=== PATIENT | male | born 1960 | race Caucasian/White ===

== ENCOUNTER 2022-03-24 12:19 | Observation (INO) | payer BC ==
[~2022-03-24] VITALS: Ht 185.4 cm; Wt 81.8 kg
[2022-03-24 12:52] LABS: BASO % 0.1 % (0.0-2.0); EOS % 0.1 % (0.0-4.0); GRAN # 8.3 K/mm3 (1.4-6.5); GRAN % 83.7 % (42.2-75.2); HEMATOCRIT 37.2 % (42.0-52.0); HEMOGLOBIN 12.9 g/dl (13.5-18.0); LYMPH % 10.3 % (20.0-51.0); MEAN CELL VOLUME 86 fl (80.0-100.0); MEAN CORPUSCULAR HEMOGLOBIN 30 pg (27-31); MEAN CORPUSCULAR HGB CONC 35 g/dl (33.0-37.0); MEAN PLATELET VOLUME 10.8 fl (7.4-10.4); MONO # 0.6 K/mm3 (0.1-0.6); MONO % 5.5 % (1.7-9.3); PLATELET COUNT 156 K/mm3 (130-400); RED BLOOD COUNT 4.31 M/mm3 (4.20-5.60); REDCELL DISTRIBUTION WIDTH-CV 12.6 % (11.5-14.5)
[2022-03-24 13:10] LABS: ALBUMIN 4.1 gm/dL (3.4-4.8); ANION GAP 18 mmol/L (7-16); BLOOD UREA NITROGEN 30 mg/dL (8-26); CARBON DIOXIDE 18 mmol/L (23-31); CHLORIDE 98 mmol/L (98-107); CREATINE KINASE 207 U/L (30-200); PHOSPHOROUS 3.1 mg/dL (2.3-4.7); POTASSIUM 5.5 mmol/L (3.5-4.5); SODIUM 134 mmol/L (136-145)
[2022-03-24 13:11] LABS: GLUCOSE 462 mg/dL (70-99)
[2022-03-24 13:22] LABS: TROPONIN-I < 0.010 ng/mL (0.00-0.033)
[2022-03-24 14:39] LABS: CALCIUM 8.5 mg/dL (8.4-10.2); CREATININE, serum 2.46 mg/dL (0.72-1.25)
[2022-03-24 15:00] LABS: MUCOUS Present (NOT PRESENT); PH 5 (5-8); SQUAMOUS EPITHELIAL None Seen /hpf (0-10); URINE APPEARANCE Clear (CLEAR/HAZY); URINE BACTERIA None Seen /hpf (NONE SEEN); URINE BLOOD 1+ (NEGATIVE); URINE COLOR Yellow (YELLOW); URINE GLUCOSE 3+ (NEGATIVE); URINE KETONE Negative (NEGATIVE); URINE NITRATE Negative (NEGATIVE); URINE PROTEIN(semi-quant) 1+ (NEGATIVE); URINE RBC 0-2 /hpf (0-2); URINE UROBILINOGEN Negative (NEGATIVE); URINE WBC 0-2 /hpf (0-2)
[2022-03-24 15:20] LABS: COLLECTION METHOD CLEAN CATCH
[2022-03-24 17:30] VITALS: BP 177/88; PULSE 85; TEMP 98.2
[2022-03-24] MEDS ORDERED: GLUCOPHAGE500 MG/TAB PO (17:36)
[2022-03-24] MEDS ORDERED: OZEMPIC0.25 MG/0. SQ (17:38)
[2022-03-24] MEDS ORDERED: PRAVACHOL10 MG PO (17:39)
--- NOTE | 2022-03-24 18:29 | NUR ---
PT TO FLOOR FROM ER AT 1730. PT ON ROOM AIR. PT STATES THAT HE IS HAVING SOME DISCOMFORT IN HIS LEGS. "THEY ARE CRAMPING, IT FEEL LIKE I GOT HIT WITH A BASEBALL BAT." LEVEMIR WAS ORDER IN THE ER AT 1515 AND NOT GIVEN WELL LABETALOL. SPOKE TO TO SEE IF HE STILL WANTED THESE MEDICATIONS TO BE GIVEN. PT BP IS NOW 177/88 AND BLOOD SUGAR 194. STATES THAT HE WOULD LIKE LABETALOL TO BE GIVEN AND THE LEVEMIR TO BE CHANGED TO 15UNITS AND THEN HE CAN ALSO BE COVERED WITH THE SLIDING SCALE. ALL MEDICATIONS WERE GIVEN PER EMAR/ORDERS. PT WAS ORIENTED TO ROOM AND ALL NEEDS. PT WAS ASSISTED TO ORDER DINNER. PT STATES NO OTHER NEEDS/CONCERNS AT THIS TIME. CALL LIGHT IS WITHIN REACH.
[2022-03-24] MEDS ORDERED: COREG 25MG25 MG/TAB PO (18:46)
[2022-03-24] MEDS ORDERED: NORVASC 5MG5 MG/TAB PO (18:47)
[2022-03-24] MEDS ORDERED: COZAAR100 MG PO (18:47)
[2022-03-24] MEDS ORDERED: PRAVACHOL 40MG40 MG PO (18:48)
[2022-03-24 20:02] VITALS: BP 154/75; PULSE 84; TEMP 98
--- NOTE | 2022-03-24 22:30 | NUR ---
Patient assesesd around 2144. Alert and oriented x 4, and able to make needs known. Denies having pain and discomfort at this time. Reports feeling much better and stronger. Encouraged to drink more fluids as patient stated he has not been drinking much fluids since arriving to medical unit. IV fluids continue per orders. Patient voices no questions, needs, or concerns at this time. In bed with call light within reach.
[2022-03-24 23:40] VITALS: BP 157/80; PULSE 74; TEMP 98.3
[2022-03-25 03:36] VITALS: BP 161/80; PULSE 71; TEMP 97.9
--- NOTE | 2022-03-25 05:19 | NUR ---
Continues on IV fluids per orders. Voices no questions, needs, or concerns at this time. In bed with call light within reach.
[2022-03-25 06:38] LABS: BASO % 0.2 % (0.0-2.0); EOS # 0.1 K/mm3 (0.0-0.7); EOS % 1.2 % (0.0-4.0); GRAN # 4.2 K/mm3 (1.4-6.5); GRAN % 69.1 % (42.2-75.2); HEMOGLOBIN 11.8 g/dl (13.5-18.0); LYMPH # 1.3 K/mm3 (1.2-3.4); LYMPH % 21.5 % (20.0-51.0); MEAN CELL VOLUME 86 fl (80.0-100.0); MEAN CORPUSCULAR HEMOGLOBIN 30 pg (27-31); MEAN CORPUSCULAR HGB CONC 35 g/dl (33.0-37.0); MEAN PLATELET VOLUME 10.4 fl (7.4-10.4); MONO # 0.5 K/mm3 (0.1-0.6); MONO % 7.7 % (1.7-9.3); PLATELET COUNT 112 K/mm3 (130-400); RED BLOOD COUNT 3.95 M/mm3 (4.20-5.60); REDCELL DISTRIBUTION WIDTH-CV 12.3 % (11.5-14.5)
[2022-03-25 06:49] LABS: HEMATOCRIT 33.9 % (42.0-52.0)
[2022-03-25 06:56] LABS: ALBUMIN 3.5 gm/dL (3.4-4.8); CALCIUM 8.9 mg/dL (8.4-10.2); CREATININE, serum 1.68 mg/dL (0.72-1.25); MAGNESIUM 1.9 mg/dL (1.6-2.6); PHOSPHOROUS 3.4 mg/dL (2.3-4.7); POTASSIUM 4.2 mmol/L (3.5-4.5)
[2022-03-25 07:00] VITALS: BP 141/69; PULSE 80; TEMP 97.9
--- NOTE | 2022-03-25 08:05 | NUR ---
PT SITTING UP IN BED ON ROOM AIR WATCHING TV. PT STATES THAT HE IS NOT HAVING ANY PAIN OR DISCOMFORT AT THIS TIME. "I FEEL A LOT BETTER THEN YESTERDAY." PT STATES NO NEEDS/CONCERNS AT THIS TIME. CALL LIGHT IS WITHIN REACH.
[2022-03-25 12:00] VITALS: BP 145/86; PULSE 76
--- NOTE | 2022-03-25 15:48 | NUR ---
R[facility] met with pt to complete intake. Pt lives at home and his next of kin are his parents. Ezekiel & Gayle @ [phone]. Pt is independent on all ADLS and does not use any DME. Pt reports no PCP and gets his medications from [facility]. Pt not interested in DPOA-HC info at this time. No other needs at this time. DC: Home
[2022-03-25 16:00] VITALS: BP 139/72; PULSE 75
--- NOTE | 2022-03-25 19:11 | NUR ---
PT LAYING SUPINE IN BED ON ROOM AIR WATCHING TV. PT STAES NO PAIN OR DISCOMFORT AT THIS TIME. PT STATES THAT HE WOULD LIKE TO HAVE HIS WATER REFILLED. THIS WAS FONE FOR PT. NO OTHER CONCERNS/NEEDS WERE VOICED. CALL LIGHT IS WITHIN REACH.
[2022-03-25 19:33] VITALS: BP 154/74; PULSE 76; TEMP 98
[2022-03-25 23:45] VITALS: BP 158/85; PULSE 71; TEMP 98.2
[2022-03-26 03:33] VITALS: BP 134/69; PULSE 77; TEMP 98.1
[2022-03-26 06:35] LABS: BASO % 0.4 % (0.0-2.0); EOS # 0.1 K/mm3 (0.0-0.7); GRAN # 3.3 K/mm3 (1.4-6.5); GRAN % 64.1 % (42.2-75.2); HEMATOCRIT 37.3 % (42.0-52.0); HEMOGLOBIN 12.6 g/dl (13.5-18.0); LYMPH # 1.4 K/mm3 (1.2-3.4); LYMPH % 26.3 % (20.0-51.0); MEAN CELL VOLUME 88 fl (80.0-100.0); MEAN CORPUSCULAR HEMOGLOBIN 30 pg (27-31); MEAN CORPUSCULAR HGB CONC 34 g/dl (33.0-37.0); MEAN PLATELET VOLUME 10.3 fl (7.4-10.4); MONO # 0.4 K/mm3 (0.1-0.6); MONO % 7.8 % (1.7-9.3); PLATELET COUNT 123 K/mm3 (130-400); RED BLOOD COUNT 4.26 M/mm3 (4.20-5.60); REDCELL DISTRIBUTION WIDTH-CV 12.5 % (11.5-14.5)
[2022-03-26 07:19] LABS: ALBUMIN 3.7 gm/dL (3.4-4.8); CALCIUM 9.4 mg/dL (8.4-10.2); CREATININE, serum 1.57 mg/dL (0.72-1.25); MAGNESIUM 1.5 mg/dL (1.6-2.6); POTASSIUM 4.3 mmol/L (3.5-4.5)
[2022-03-26 07:21] VITALS: BP 145/84; PULSE 66; TEMP 98.3
--- NOTE | 2022-03-26 10:29 | NUR ---
Initial visit; Patient thanked Solo Musician for looking in on him and offering God's blessings. Patient spoke at length about his heat stroke and is looking amazingly well for what his body went through. Solo Musician wished patient well.
[2022-03-26 11:31] VITALS: BP 155/80; PULSE 71; TEMP 98.2
--- NOTE | 2022-03-26 13:08 | NUR ---
PATIENT A&o X4. SPEECH CLEAR. SKIN INTACT. NO COMPLAINTS OF PAIN. PLAN TO DISCHARGE TODAY. IV FLUIDS RUNNING AT 75ML/HR.
--- NOTE | 2022-03-26 13:13 | NUR ---
PATIENT DISCHARGE INSTRUCTIONS DISCUSSED AND PATIENT EXPRESSED VERBAL UNDERSTANDING. PATIENT IV DISCONTINUED, TELE REMOVED. PATIENT DRESSED SELF, AND WALKED OUT WITH RAMONITA GRIMES.
== END 2022-03-26 12:10 | disposition home or self-care (01) ==
LOC: COL.ER 12:19 → MEDICAL 15:07
PROVIDERS: Emergency Medicine; ADMIT Internal Medicine
DX: E86.0 Dehydration (principal); N17.9 Acute kidney failure, unspecified; E87.5 Hyperkalemia; I16.0 Hypertensive urgency; E11.9 Type 2 diabetes mellitus without complications; E87.2 Acidosis; E83.42 Hypomagnesemia; Z79.899 Other long term (current) drug therapy
CPT/HCPCS: 99223-AI; 99233-AI; G0378; J1644; J1815; J3475; J7030; J7120